=== PATIENT | female | born 1955 | race African-American/Black ===

== ENCOUNTER 2017-09-27 08:07 | Inpatient (IN) | payer BC ==
[~2017-09-27] VITALS: Ht 165.1 cm; Wt 81.3 kg
[~2017-09-27 08:07] MED LIST: ALT10 PO; CARLA PO; CETI-101 PO; DEXL60CA3 PO; HYDR-4001; HYDR12.54 PO
[2017-09-27] MEDS ORDERED: MORPHINE SULFATE 4 MG/ML CPJ (NOT FOR IM USE) IV STA (08:46)
[2017-09-27] MEDS ORDERED: NITROGLYCERIN OINT 1GM/INCH UDPKT TD STA (08:46)
[2017-09-27] MEDS ORDERED: CLOPIDOGREL 75MG TABLET PO ONE (09:00)
[2017-09-27 09:04] LABS: BASOPHILS % 0.8 % (0.0-2.0); EOSINOPHILS % 2.1 % (0.0-5.0); HEMATOCRIT. 41.1 % (36.0-48.0); HEMOGLOBIN. 13.6 g/dL (12.0-16.0); LYMPHOCYTES % 32.4 % (20.0-50.0); MEAN CORPUSCULAR HEMOGLOBIN 27.6 pg (28.0-32.0); MEAN CORPUSCULAR VOLUME 83.3 fL (81.0-99.0); MEAN PLATELET VOLUME 8.8 fl (7.4-10.4); NEUTROPHILS % 59.7 % (40.0-76.0); PLATELET 168 x1000/uL (130-400); RED BLOOD CELL COUNT 4.93 mill/uL (4.2-5.4); RED CELL DISTRIBUTION WIDTH 14.1 % (11.6-14.6)
[2017-09-27 09:14] LABS: CHLORIDE 109 mEq/L (98-107)
[2017-09-27] MEDS ORDERED: ACETAMINOPHEN 325MG TABLET PO SCH (15:45)
[2017-09-27] MEDS ORDERED: HYDROCODONE/ACETAMINOPHEN 5/325MG TABLET PO PRN (19:00)
[2017-09-27] MEDS ORDERED: MORPHINE SULFATE 4 MG/ML CPJ (NOT FOR IM USE) IV PRN (19:00)
[2017-09-27] MEDS ORDERED: DOCUSATE SODIUM 100MG CAPSULE PO PRN (19:00)
[2017-09-27] MEDS ORDERED: CLONIDINE 0.1MG TABLET PO PRN (19:00)
[2017-09-27] MEDS ORDERED: ONDANSETRON HCL 4MG/2ML VIAL IV PRN (19:00)
[2017-09-27 23:30] VITALS: BP 165/101
[2017-09-28] VITALS (7 sets, daily range): BP systolic 108–131; BP diastolic 70–79
[2017-09-28 00:12] LABS: CREATINE KINASE 183 IU/L (26-192); CREATINE KINASE MB FRACTION 0.9 ng/mL (0.5-3.6)
[2017-09-28] MEDS ORDERED: CLOP75TA16 PO (05:00)
[2017-09-28] MEDS ORDERED: LIP40 PO (05:00)
[2017-09-28] MEDS ORDERED: DILT120C11 PO (05:00)
[2017-09-28 07:34] LABS: BASOPHILS % 0.7 % (0.0-2.0); EOSINOPHILS % 2.4 % (0.0-5.0); HEMATOCRIT. 39.8 % (36.0-48.0); HEMOGLOBIN. 13.3 g/dL (12.0-16.0); LYMPHOCYTES % 41.8 % (20.0-50.0); MEAN CORPUSCULAR HEMOGLOBIN 27.8 pg (28.0-32.0); MEAN PLATELET VOLUME 9.2 fl (7.4-10.4); NEUTROPHILS % 49.1 % (40.0-76.0); PLATELET 175 x1000/uL (130-400); RED BLOOD CELL COUNT 4.79 mill/uL (4.2-5.4); RED CELL DISTRIBUTION WIDTH 14.4 % (11.6-14.6)
[2017-09-28] MEDS ORDERED: ENOXAPARIN 40MG/0.4ML SYR SUBCUT SCH (09:00)
[2017-09-28 09:27] LABS: CHLORIDE 108 mEq/L (98-107)
[2017-09-28 09:42] LABS: CREATINE KINASE 164 IU/L (26-192); CREATINE KINASE MB FRACTION 0.8 ng/mL (0.5-3.6); HDL CHOLESTEROL 49 mg/dL (40-59); LDL CHOLESTEROL 64 mg/dL (5-100)
[2017-09-28] MEDS: AMLODIPINE 10MG TABLET PO SCH ×2 (09:59→10:02)
== END 2017-09-28 18:25 | disposition home or self-care (01) | DRG 303 ==
LOC: ER 08:13 → SUPCPDRO 18:52 → ENRESERV 19:53 → 6WST 19:53
PROVIDERS: ADMIT Hospitalist; ATTEND Hospitalist
DX: I25.119 Atherosclerotic heart disease of native coronary artery with unspecified angina pectoris (principal); E78.00 Pure hypercholesterolemia, unspecified; I10 Essential (primary) hypertension; Z79.899 Other long term (current) drug therapy; Z88.2 Allergy status to sulfonamides; Z88.6 Allergy status to analgesic agent
CPT/HCPCS: 36415; 71045; 80053; 80061; 82550; 82553; 83690; 84484; 85025; 93005; 99285; J1650; J2270; J2405